=== PATIENT | female | born 1940 | race Caucasian/White ===

== ENCOUNTER → 2016-07-01 | Outpatient (CLI) | payer BC ==
[~2016-07-01] MED LIST: CALC-354 PO; CHOL1000 PO; SIMV20TA2 PO
[2016-07-01 12:16] LABS: BASO % 0.5 %; BASO ABS # 0.03 K/uL (0-0.2); COMPLETE YES; EOS % 1.8 %; HEMATOCRIT 42.5 % (37-47); LYMPH % 31.4 %; LYMPH ABS # 1.75 K/uL (1.2-3.4); MEAN CORPUSCULAR HEMOGLOBIN 29.7 pg (25-34); MEAN CORPUSCULAR HGB CONC 32.9 g/dl (32-36); MEAN PLATELET VOLUME 13.4 fL (7.4-10.4); MONO % 11.7 %; NEUT % 54.6 %; PLATELET COUNT 223 K/uL (130-400); RED BLOOD COUNT 4.72 M/uL (4.2-5.4); WHITE BLOOD COUNT 5.57 K/uL (4.8-10.8)
[2016-07-01 12:35] LABS: ALT/SGPT 14 U/L (12-78); AST/SGOT 8 U/L (15-37); BLOOD UREA NITROGEN 19 mg/dl (7-18); BUN/CREATININE RATIO 20.7 (10-20); CALCIUM 9.7 mg/dl (8.5-10.1); CARBON DIOXIDE 28 mmol/L (21-32); CHLORIDE 106 mmol/L (98-107); CHOLESTEROL 152 mg/dl (0-200); CREATININE 0.91 mg/dl (0.60-1.20); GLUCOSE 95 mg/dl (70-99); POTASSIUM 4.4 mmol/L (3.5-5.1); SODIUM 141 mmol/L (136-145); TRIGLYCERIDES 89 mg/dl (0-150); VERY LOW DENSITY LIPOPROT CALC 18 mg/dl
[2016-07-01 12:36] LABS: ESTIMATED AVERAGE GLUCOSE 126 mg/dl; HA1C FLAG Normal (Normal)
[2016-07-01 12:38] LABS: ALB/GLOB RATIO 1.3 (0.9-2); ALKALINE PHOSPHATASE 80 U/L (45-117); CHOLESTEROL/HDL RATIO 2.7; HDL CHOLESTEROL 57 mg/dl; LDL CHOLESTEROL CALCULATED 77 mg/dl
[2016-07-01 12:41] LABS: URINE APPEARANCE CLEAR (CLEAR); URINE BILIRUBIN NEG (NEG); URINE COLOR YELLOW; URINE EPITHELIAL CELL AUTO >30 /lpf (0-5); URINE NITRITE NEG (NEG); URINE SPECIFIC GRAVITY 1.019 (1.000-1.030); UROBILINOGEN NEG (NEG); ZZUR CULT IF INDIC CLEAN CATCH NO
[2016-07-01 12:44] LABS: MANUAL MICROSCOPIC REQUIRED? NO; REVIEW REQ? YES
== END | disposition home or self-care (01) ==
LOC: C.LABBFT 08:04
PROVIDERS: ATTEND Internal Medicine
DX: E78.00 Pure hypercholesterolemia, unspecified (principal); R73.03 Prediabetes; E55.9 Vitamin D deficiency, unspecified

== ENCOUNTER → 2016-07-07 | Outpatient (CLI) | payer BC | END | disposition home or self-care (01) | LOC: C.LABBFT 11:27 | PROVIDERS: ATTEND Internal Medicine | DX: R63.4 Abnormal weight loss (principal) ==

== ENCOUNTER → 2016-07-26 | Outpatient (CLI) | payer BC ==
--- NOTE | 2016-07-26 09:11 | DIAGNOSTIC IMAGING REPORT ---
CT LUNG SCREENING, LOW DOSE WITH COMPUTER-AIDED DETECTION (CAD) CLINICAL HISTORY: HX TOBACCO USE LOW DOSE LUNG SCREENING COMPARISON STUDY: Chest CT May 16, 2015. CT DOSE: 70.23 mGycm TECHNIQUE: Low-dose helical CT was acquired without intravenous contrast from lung apices to bases and reconstructed at 2.5 mm every 2 mm. CAD was utilized for this study. FINDINGS: No enlarged axillary, mediastinal or hilar lymph nodes are present. The heart is mildly enlarged. There is no pericardial effusion. Central airways are patent. Groundglass opacities within the lingula and left lower lobe reflect atelectasis. There is no consolidation to suggest pneumonia. There are no suspicious pulmonary nodules. Bony thorax and upper abdomen are unremarkable on this unenhanced exam. IMPRESSION: 1. No suspicious pulmonary nodules. 2. No acute intrathoracic findings. Lung RADS: 1. Negative exam. A follow-up annual screening CT in 12 months is recommended. CAD FINDINGS: Overall Lung RADS Category: 1 Lung RADS Management Recommendation: Lung-RADS 1: Continue annual screening in 12 months. Lung RADS Follow Up Date: 2017-07-26 Lung RADS Nodule ID: Electronically signed by: Jaiden Falk M.D. 07/26/2016 9:09 AM Dictated Date/Time: 07/26/2016 8:55 AM
== END | disposition home or self-care (01) ==
LOC: C.CTS 08:16
PROVIDERS: ATTEND Internal Medicine
DX: Z87.891 Personal history of nicotine dependence (principal)

== ENCOUNTER → 2016-07-29 | Outpatient (CLI) | payer BC | END | disposition home or self-care (01) | LOC: C.MAMM 12:28 | PROVIDERS: ATTEND Internal Medicine | DX: M85.88 Other specified disorders of bone density and structure, other site (principal); Z78.0 Asymptomatic menopausal state ==

== ENCOUNTER → 2016-09-15 | Day surgery (SDC) | payer BC ==
[2016-09-02 15:15] VITALS: Ht 160 cm; Wt 70.5 kg
[~2016-09-15] VITALS: Ht 160 cm; Wt 70.5 kg
[~2016-09-15] MED LIST changes: +LIDOCAINE HCL 2% 2 ML VIAL (20MG/ML) ONE; +PROPOFOL IV EMULSION 10 MG/ML 20 ML VIAL IV ONE; +SODIUM CHLORIDE 0.9% 500ML 500 ML IV ONE
--- NOTE | 2016-09-15 08:52 | Endo History and Physical ---
History & Physical Date of Service: Sep 15, 2016. Chief Complaint: weight loss Referring Physician: Dr. Bryce Garcia History of Present Illness 76 yo CF who presents for colonoscopy secondary to weight loss. Past Surgical History Hx Cardiac Surgery: Yes (HEART CATH, NO STENTS) Hx Internal Defibrillator: No Hx Pacemaker: No Hx Abdominal Surgery: Yes (POLO, MARIJA BSO, TUBAL LIGATION) Hx of Implantable Prosthesis: No Hx Post-Op Nausea and Vomiting: No Hx Cancer Surgery: No Hx Thoracic Surgery: No Hx Orthopedic: No Hx Urinary Tract Surgery: No Family History None Social History Smoking Status: Current Every Day Smoker Hx Substance Use: No Hx Alcohol Use: No Allergies Coded Allergies: No Known Allergies (Verified , 09/02/16) Current Medications Reported Home Medications Medications Dose Route/Sig Max Daily Dose Days Date Category Caltrate 600+D (Calcium Carbonate-Cholecalcife) 1 Tab Tab 1 Tab PO HS 09/02/16 Reported Vitamin D3 (Cholecalciferol) 1,000 Unit Tab 1 Tab PO HS 09/02/16 Reported Zocor (Simvastatin) 20 Mg Tab 20 Mg PO HS 09/02/16 Reported Vital Signs Weight (Kilograms): 70.45 Height (Feet): 5 Height (Inches): 3 Date Time Temp Pulse Resp B/P (MAP) Pulse Ox O2 Delivery O2 Flow Rate FiO2 09/15/16 08:27 36.6 65 16 151/68 (95) 96 Room Air Physical Exam General Appearance: WD/WN, no apparent distress Respiratory/Chest: Auscultation: breath sounds normal Cardiovascular: Heart Auscultation: RRR Abdomen: Bowel Sounds: normal Inspection & Palpation: soft, non-distended, no tenderness, guarding & rebound Assessment and Plan Assessment: 76 yo CF who presents for colonoscopy secondary to weight loss. Plan: Proceed with colonoscopy.
--- NOTE | 2016-09-15 09:37 | GI REPORT ---
Procedure Date: 09/15/2016 9:00 AM THIS REPORT HAS BEEN AMENDED Addendum Number: 1 Addendum Date: 09/15/2016 10:26:08 AM No specimens were obtained during this procedure, and therefore, no pathology is pending. No repeat colonoscopy needed secondary to patient's age and lack of adenomas. Procedure: Colonoscopy Indications: Weight loss Medicines: Monitored Anesthesia Care Complications: No immediate complications. Estimated Blood Loss: Estimated blood loss: none. Procedure: Pre-Anesthesia Assessment: - Prior to the procedure, a History and Physical was performed, and patient medications and allergies were reviewed. The patient's tolerance of previous anesthesia was also reviewed. The risks and benefits of the procedure and the sedation options and risks were discussed with the patient. All questions were answered, and informed consent was obtained. Prior Anticoagulants: The patient has taken no previous anticoagulant or antiplatelet agents. ASA Grade Assessment: II - A patient with mild systemic disease. After reviewing the risks and benefits, the patient was deemed in satisfactory condition to undergo the procedure. After I obtained informed consent, the scope was passed under direct vision. Throughout the procedure, the patient's blood pressure, pulse, and oxygen saturations were monitored continuously. The scope was introduced through the anus and advanced to the terminal ileum. The colonoscopy was performed without difficulty. The patient tolerated the procedure well. The quality of the bowel preparation was good. The terminal ileum, ileocecal valve, appendiceal orifice, and rectum were photographed. Findings: Non-bleeding internal hemorrhoids were found during retroflexion. The hemorrhoids were small. The exam was otherwise without abnormality. Impression: - Non-bleeding internal hemorrhoids. - The examination was otherwise normal. - No specimens collected. Recommendation: - Resume previous diet. - Continue present medications. - Repeat colonoscopy for surveillance based on pathology results. - Return to primary care physician as previously scheduled. Wilmer Rueda, DO 09/15/2016 9:36:26 AM This report has been signed electronically. Note Initiated On: 09/15/2016 9:00 AM I attest to the content of the Intraoperative Record and orders documented therein, exceptions below Wilmer Rueda, DO 09/15/2016 10:27:01 AM This report has been signed electronically.
--- NOTE | 2016-09-15 09:45 | Anesthesiology Progress Note ---
Anesthesia Post Op Note Date & Time Sep 15, 2016 at 09:44 Vital Signs Pain Intensity: 0 Vital Signs Past 12 Hours Date Time Temp Pulse Resp B/P (MAP) Pulse Ox O2 Delivery O2 Flow Rate FiO2 09/15/16 09:30 61 16 138/59 (85) 97 Room Air 09/15/16 08:27 36.6 65 16 151/68 (95) 96 Room Air Notes Mental Status: alert / awake / arousable, participated in evaluation Pt Amnestic to Procedure: Yes Nausea / Vomiting: adequately controlled Pain: adequately controlled Airway Patency, RR, SpO2: stable & adequate BP & HR: stable & adequate Hydration State: stable & adequate Anesthetic Complications: no major complications apparent
[2016-09-15 10:02] VITALS: BP 136/61; PULSE 54; O2SAT 97
--- NOTE | 2016-09-15 10:08 | Discharge Instructions ---
Endoscopy Patient Instructions Date / Procedure(s) Performed Sep 15, 2016. Colonoscopy Allergy Information Coded Allergies: No Known Allergies (Verified , 09/02/16) Discharge Date / Findings Sep 15, 2016. Internal hemorrhoids Medication Instructions OK to resume all medications today as prescribed Medications Dose Route/Sig Max Daily Dose Days Date Category Caltrate 600+D (Calcium Carbonate-Cholecalcife) 1 Tab Tab 1 Tab PO HS 09/02/16 Reported Vitamin D3 (Cholecalciferol) 1,000 Unit Tab 1 Tab PO HS 09/02/16 Reported Zocor (Simvastatin) 20 Mg Tab 20 Mg PO HS 09/02/16 Reported Provider Instructions Activity Restrictions - No exercising or heavy lifting for 24 hours. - Do not drink alcohol the day of the procedure. - Do not drive a car or operate machinery until the day after the procedure. - Do not make any important decisions or sign important papers in 24 hours after the procedure. Following Day: - Return to full activity which may include returning to work/school. Diet Start your diet with liquids and light foods (jello, soup, juice, toast). Then eat your usual diet if not nauseated. Treatment For Common After Affects For mild abdominal pain, bloating, or excessive gas: - Rest - Eat lightly - Lie on right side Follow-Up Information Follow-up with Dr. Bryce Garcia as scheduled Anesthesia Information What You Should Know You have had a procedure that required some medicine to reduce anxiety and discomfort. This treatment is called moderate sedation. After receiving the treatment, you may be sleepy, but you will be able to breathe on your own. The effects of the treatment may last for several hours. Follow these instructions along with Activity/Diet recommendations noted above: * Do NOT do anything where dizziness or clumsiness would be dangerous. * Rest quietly at home today, then you can be up and about tomorrow. * Have a responsible person stay with you the rest of today. * You may have had an I.V. today. If so, you may take the dressing off later today. Recommendations Call your doctor if: * Trouble breathing * Continuous vomiting for more than 24 hours * Temperature above 101 degrees * Severe abdominal pain or bloating * Pain not relieved by pain medicine ordered * There is increased drainage or redness from any incision * A large amount of rectal bleeding greater than 2-3 tablespoons. (If you had a polyp/s removed or have hemorrhoids, a small amount of blood - from the rectum is to be expected.) * You have any unanswered questions or concerns. IN THE EVENT OF A SERIOUS EMERGENCY, GO TO THE NEAREST EMERGENCY ROOM Your discharge instructions were prepared by provider Wilmer Rueda. Patient Instructions Signature Page Melissa Lyle Patient (or Guardian) Signature/Date: I have read and understand the instructions given to me by my caregivers. Caregiver/RN/Doctor Signature/Date: The above-named patient and/or guardian has received patient instructions on this date. + Original Patient Signature Page (only) stays with chart. Please make copy for patient.
== END | disposition home or self-care (01) ==
LOC: C.GI 08:12
PROVIDERS: ATTEND Internal Medicine
DX: R63.4 Abnormal weight loss (principal); F17.200 Nicotine dependence, unspecified, uncomplicated; K64.8 Other hemorrhoids

== ENCOUNTER → 2016-10-27 | Outpatient (CLI) | payer BC ==
[~2016-10-27] MED LIST changes: -LIDOCAINE HCL 2% 2 ML VIAL (20MG/ML) ONE; -PROPOFOL IV EMULSION 10 MG/ML 20 ML VIAL IV ONE; -SODIUM CHLORIDE 0.9% 500ML 500 ML IV ONE
--- NOTE | 2016-10-28 07:54 | MAMMOGRAPHY REPORT ---
BILATERAL DIGITAL SCREENING MAMMOGRAM WITH CAD: 10/27/2016 CLINICAL HISTORY: Routine screening. Patient has no complaints. TECHNIQUE: Bilateral CC and MLO views were obtained. Current study was also evaluated with a Compute r Aided Detection (CAD) system. COMPARISON: Comparison is made to exams dated: 04/01/2015 mammogram, 12/14/2013 mammogram, 10/24/2012 mammogram, 10/18/2011 mammogram, 10/13/2010 mammogram, and 10/08/2009 mammogram - [facility] enter. BREAST COMPOSITION: The tissue of both breasts is almost entirely fatty. FINDINGS: No suspicious mass, architectural distortion or cluster of microcalcifications is seen. IMPRESSION: ACR BI-RADS CATEGORY 1: NEGATIVE There is no mammographic evidence of malignancy. A 1 year screening mammogram is recommended. The pa tient will receive written notification of the results. Approximately 10% of breast cancers are not detected with mammography. A negative mammographic report should not delay biopsy if a clinically suggestive mass is present. Minoo Kimble M.D. ay/:10/27/2016 15:35:03 [facility] [place]: Alta MARTINEZ(Paulo)(Antoni)([place]), [facility] letter sent: Normal 1/2 BI-RADS Code: ACR BI-RADS Category 1: Negative
== END | disposition home or self-care (01) ==
LOC: C.MAMM 13:25
PROVIDERS: ATTEND Internal Medicine
DX: Z12.31 Encounter for screening mammogram for malignant neoplasm of breast (principal)

== ENCOUNTER → 2016-12-09 | Outpatient (CLI) | payer BC ==
[2016-12-14 06:23] LABS: ALBUMIN 3.8 G/DL (3.8-4.8); CREATININE UR 108 MG/DL (20-320); GAMMA GLOBULIN 0.8 G/DL (0.8-1.7); TOTAL PROTEIN 6.4 G/DL (6.2-8.3)
== END | disposition home or self-care (01) ==
LOC: C.LABBFT 11:02
PROVIDERS: ATTEND Internal Medicine
DX: R63.4 Abnormal weight loss (principal); E55.9 Vitamin D deficiency, unspecified

== ENCOUNTER → 2016-12-13 | Outpatient (CLI) | payer BC ==
--- NOTE | 2016-12-13 10:12 | DIAGNOSTIC IMAGING REPORT ---
ABDOMEN COMPLETE (US) CLINICAL HISTORY: R63.4 Weight lossZ78.0 [id number] COMPARISON STUDY: No previous studies for comparison. FINDINGS: There is an 8 mm hyperechoic focus within the right lobe of the liver. This is consistent with although not specific for a small hepatic hemangioma. The gallbladder surgically absent The pancreas is sonographically normal. The common bile duct measures 8 mm. The spleen appears sonographically normal. The right kidney measures 10 cm in length. The left kidney measures 9.5 cm in length. No renal masses are visualized. There is no hydronephrosis. The IVC appears patent. There is no evidence of abdominal aortic aneurysm. IMPRESSION: 1. Surgically absent gallbladder 2. 8 mm echogenic focus within the right lobe of the liver. This is consistent with although not specific for a hepatic hemangioma Electronically signed by: Tutu Richardson M.D. 12/13/2016 10:11 AM Dictated Date/Time: 12/13/2016 10:09 AM
--- NOTE | 2016-12-13 10:13 | DIAGNOSTIC IMAGING REPORT ---
PELVIC ULTRASOUND CLINICAL HISTORY: Postmenopausal weight loss. COMPARISON STUDY: None. TECHNIQUE: Transabdominal sonography of the pelvis was performed. The patient deferred transvaginal imaging. FINDINGS: The uterus is surgically absent. Neither ovary was visualized. No free fluid was identified within the pelvis. IMPRESSION: 1. No significant abnormality within the pelvis by transabdominal ultrasound status post hysterectomy. 2. Nonvisualization of the ovaries which may be surgically absent. Electronically signed by: Jaiden Falk M.D. 12/13/2016 10:12 AM Dictated Date/Time: 12/13/2016 10:10 AM
== END | disposition home or self-care (01) ==
LOC: C.ULTR 08:45
PROVIDERS: ATTEND Internal Medicine
DX: R63.4 Abnormal weight loss (principal); Z78.0 Asymptomatic menopausal state

== ENCOUNTER → 2016-12-20 | Outpatient (CLI) | payer BC ==
[2016-12-20 17:53] LABS: BLOOD UREA NITROGEN 19 mg/dl (7-18); CREATININE 0.91 mg/dl (0.60-1.20)
== END | disposition home or self-care (01) ==
LOC: C.LABBFT 11:40
PROVIDERS: ATTEND Internal Medicine
DX: E55.9 Vitamin D deficiency, unspecified (principal); R63.4 Abnormal weight loss; R73.03 Prediabetes; R93.8 Abnormal findings on diagnostic imaging of other specified body structures

== ENCOUNTER → 2016-12-23 | Outpatient (CLI) | payer BC ==
[~2016-12-23] MED LIST changes: +OPTIRAY 320 IV PRN
--- NOTE | 2016-12-23 13:46 | DIAGNOSTIC IMAGING REPORT ---
CT SCAN OF THE ABDOMEN AND PELVIS WITH IV CONTRAST CLINICAL HISTORY: Follow-up abnormal ultrasound. Liver lesion. COMPARISON STUDY: Abdominal ultrasound dated 12/13/2016. TECHNIQUE: Following the IV administration of 94 cc of Optiray 320, CT scan of the abdomen and pelvis is performed from the lung bases to the proximal femora. Images are reviewed in the axial, sagittal, and coronal planes. IV contrast was administered without complication. A dose lowering technique was utilized adhering to the principles of ALARA. CT DOSE: 635.20 mGycm FINDINGS: Lung bases: The heart is mildly enlarged and without pericardial effusion. The lung bases are clear. Liver: The contrast-enhanced liver is normal in size, contour, and attenuation. There is minimal central intrahepatic biliary ductal dilatation. The hepatic veins and portal veins are patent. There is a 9 mm low-attenuation lesion is seen in the dome of the liver on image #37, and this likely corresponds to the lesion seen ultrasound. There is a second similar-appearing 9 mm low-attenuation lesion in the right lobe of liver seen on image #90. These appear to demonstrate small foci of nodular enhancement but are too small for definitive characterization. Gallbladder: Surgically absent noting clips in the gallbladder fossa. Spleen: Normal in size and attenuation. There are calcified splenic granulomas. Pancreas: Unremarkable. Adrenal glands: Unremarkable. Kidneys: The contrast enhanced kidneys demonstrate mild cortical atrophy and are without hydronephrosis. Extrarenal pelvises are noted bilaterally. The kidneys enhance symmetrically. Abdominal vasculature: The abdominal aorta is normal in course and caliber noting moderate atherosclerotic calcification. Bowel: There is moderate colonic fecal retention. No bowel obstruction is seen. The appendix is well-visualized and normal. Peritoneum: There is no intraperitoneal free air or abdominal ascites. There is a small fat-containing umbilical hernia. Lymphadenopathy: None. Pelvic viscera: The bladder is normal as visualized. The uterus is surgically absent. Prominence of the right cervical cuff is nonspecific. This appears somewhat nodular as seen on image #366 and measures up to 2.6 cm. No adnexal lesion is seen. Skeletal structures: The skeletal structures are osteopenic. There is mild lumbosacral spondylosis. No lytic or blastic lesions are seen. A hemangioma is noted in the body of L3. IMPRESSION: 1. There are no acute infectious or inflammatory findings in the abdomen or pelvis. 2. There are 2 low-attenuation 9 mm liver lesions, 1 which corresponds to the lesion seen by ultrasound. These appear to demonstrate small foci of peripheral nodular enhancement but are too small for definitive characterization. When correlated with the 12/13/2016 ultrasound of these likely represent benign hemangiomas. 3. The uterus is surgically absent. There is prominence of the right cervical cuff of indeterminate significance (if any). 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 4. Cardiomegaly. 5. Moderate constipation. Electronically signed by: Dann Quinones M.D. 12/23/2016 1:45 PM Dictated Date/Time: 12/23/2016 1:37 PM
== END | disposition home or self-care (01) ==
LOC: C.CTS 11:53
PROVIDERS: ATTEND Internal Medicine
DX: K76.9 Liver disease, unspecified (principal); R93.8 Abnormal findings on diagnostic imaging of other specified body structures; Z90.710 Acquired absence of both cervix and uterus

== ENCOUNTER → 2017-05-30 | Outpatient (CLI) | payer BC, OTHER ==
[~2017-05-30] MED LIST changes: -OPTIRAY 320 IV PRN
[2017-05-30 12:41] LABS: ALBUMIN 3.9 gm/dl (3.4-5.0); ALT/SGPT 18 U/L (12-78); BLOOD UREA NITROGEN 19 mg/dl (7-18); CALCIUM 9.2 mg/dl (8.5-10.1); CARBON DIOXIDE 27 mmol/L (21-32); CHOLESTEROL 164 mg/dl (0-200); CREATININE 0.94 mg/dl (0.60-1.20); GLUCOSE 105 mg/dl (70-99); SODIUM 139 mmol/L (136-145)
[2017-05-30 12:44] LABS: ALKALINE PHOSPHATASE 77 U/L (45-117); AST/SGOT 16 U/L (15-37); LDL CHOLESTEROL CALCULATED 86 mg/dl; TOTAL PROTEIN 7.5 gm/dl (6.4-8.2)
[2017-05-30 12:54] LABS: BASO % 0.3 %; BASO ABS # 0.02 K/uL (0-0.2); EOS % 2.4 %; EOS ABS # 0.15 K/uL (0-0.5); HEMATOCRIT 41.4 % (37-47); HEMOGLOBIN 13.6 g/dL (12.0-16.0); IG# 0.01 K/uL (0.00-0.02); LYMPH % 31.2 %; LYMPH ABS # 1.96 K/uL (1.2-3.4); MEAN CELL VOLUME 90.2 fL (80-100); MEAN CORPUSCULAR HEMOGLOBIN 29.6 pg (25-34); MEAN CORPUSCULAR HGB CONC 32.9 g/dl (32-36); MEAN PLATELET VOLUME 13.3 fL (7.4-10.4); MONO % 12.6 %; MONO ABS # 0.79 K/uL (0.11-0.59); NEUT % 53.3 %; NEUT ABS # 3.36 K/uL (1.4-6.5); PLATELET COUNT 225 K/uL (130-400); RED CELL DISTRIBUTION WIDTH CV 12.7 % (11.5-14.5); RED CELL DISTRIBUTION WIDTH SD 41.6 fL (36.4-46.3); WHITE BLOOD COUNT 6.29 K/uL (4.8-10.8)
[2017-05-30 13:08] LABS: HEMOGLOBIN A1C 5.9 % (4.5-5.6)
== END | disposition home or self-care (01) ==
LOC: C.LABBFT 07:54
PROVIDERS: ATTEND Internal Medicine
DX: R73.03 Prediabetes (principal); E78.00 Pure hypercholesterolemia, unspecified; E55.9 Vitamin D deficiency, unspecified

== ENCOUNTER → 2017-07-20 | Outpatient (CLI) | payer BC, OTHER | END | disposition home or self-care (01) | LOC: C.PAPS 11:03 | PROVIDERS: ATTEND Obstetrics & Gynecology | DX: Z91.89 Other specified personal risk factors, not elsewhere classified (principal) ==

== ENCOUNTER → 2017-07-27 | Outpatient (CLI) | payer BC, OTHER ==
--- NOTE | 2017-07-27 10:54 | DIAGNOSTIC IMAGING REPORT ---
CT LUNG SCREENING, LOW DOSE WITH COMPUTER-AIDED DETECTION (CAD) CLINICAL HISTORY: Smoking history. COMPARISON STUDY: Lung screening CT 07/26/2016. CT DOSE: 67.94 mGycm TECHNIQUE: Low-dose helical CT was acquired without intravenous contrast from lung apices to bases and reconstructed at 2.5 mm every 2 mm. CAD was utilized for this study. A dose lowering technique was utilized adhering to the principles of ALARA. FINDINGS: Emphysema. No suspicious pulmonary nodules. No pleural effusions. No pneumothorax. The central airways are patent. No suspicious lytic or blastic osseous lesions. No mediastinal or hilar lymphadenopathy. The heart is normal in size. The visualized liver and adrenal glands are unremarkable. Calcified granuloma seen within the spleen. IMPRESSION: No suspicious pulmonary nodules. CAD FINDINGS: Overall Lung RADS Category: 1 Lung RADS Management Recommendation: Continue annual lung cancer screening. Lung RADS Follow Up Date: 2018-07-27 Lung RADS Nodule ID: Electronically signed by: Musa Husain M.D. 07/27/2017 11:31 AM Dictated Date/Time: 07/27/2017 10:48 AM
== END | disposition home or self-care (01) ==
LOC: C.CTS 10:36
PROVIDERS: ATTEND Internal Medicine
DX: Z87.891 Personal history of nicotine dependence (principal)